=== PATIENT | male | born 1965 | race Caucasian/White ===

== ENCOUNTER → 2020-07-24 | Outpatient (CLI) | payer OTHER ==
[~2020-07-24] MED LIST: AUGMENTIN 875-1 EACH PO; CETIRIZINE HCL10 MG PO; CLARITIN10 MG PO; DESYREL 50 MG T50 MG PO; FLOVENT DISKUS50 MCG INH; GABAPENTIN600 MG PO; LEVOXYL25 MCG PO; LISINOPRIL5 MG PO; PERCOCET 10-321 EACH PO; PREDNISONE 20 M20 MG PO; TRICOR 145 MG145 MG PO; ZYRTEC10 M3 PO
== END ==
LOC: KOH-I 12:54
DX: R51.9 Headache, unspecified (principal)
CPT/HCPCS: 70551